=== PATIENT | female | born 1950 | race Caucasian/White ===

== ENCOUNTER → 2016-10-31 | Outpatient (CLI) | payer MEDICARE, BC | LOC: RAD 10:21 | PROVIDERS: ATTEND Family Medicine | DX: Z12.31 Encounter for screening mammogram for malignant neoplasm of breast (principal) ==

== ENCOUNTER 2017-01-26 10:12 | Emergency (ER) | payer MEDICARE, BC ==
[~2017-01-26] VITALS: Ht 160 cm; Wt 83300.0 kg
[~2017-01-26 10:12] MED LIST: ALPR.25T PO; ASCO500T5 PO; ASPI-586 PO; ATOR20TA PO; CETI10TA23 PO; CYCL10TA45 PO; ESTR1TAB24 PO; FENO160T PO; FISH OIL500 M1 PO; FOLI1TAB6 PO; HCT25T PO; LEVO75TA4 PO; LOSA100T8 PO; MELO-249 PO; METO-270 PO; NITR0.4T7 SL; OMEP20CA12 PO; OXYB5TAB9 PO; TRAZ150T72 PO
--- NOTE | 2017-01-26 10:15 | NUR ---
PATIENT INITIALLY SEEN IN TRIAGE ROOM AND UPON REPORT OF CHEST DISCOMFORT TAKEN TO ER-5 WHERE VITAL SIGNS, BRIEF HISTORY OF CURRENT COMPLAINT, ALLERGIES, ETC OBTAINED. INFORMATION REPORTED (WRITTEN AND ORALLY) TO Rose QUICK RN WHO HAS ASSUMED CARE OF PT.
--- OUTSIDE RECORDS SUMMARY | 2017-01-26 10:16 | XMS REPORT | Summary of Care ---
Author Author Marlen Storm, ADRIAN, ,, Simeon Blake Unknown Address Unknown Phone Unavailable Care Team Providers Care Gerontology Aide Name Role Phone Marlen Storm, ADRIAN, ,, M Unavailable Unavailable Lian Storm, Yesy Unavailable Unavailable Hue Storm, Maria A Unavailable Unavailable Servando Rand Unavailable Unavailable Unavailable Unavailable Functional Status Name Dates Details Functional status health issues are not documented Status: Name Dates Details Cognitive status health issues are not documented Status: Problems Name Dates Details Obesity (278.00, E66.9) Status: Active Pre-operative cardiovascular examination (V72.81, Z01.810) Status: Active Hemangioma of skin (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.01, D18.01) Status: Active Urinary incontinence (788.30, R32) Status: Active Urinary urgency (788.63, R39.15) Status: Active 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 Refills: 0 Start -Sep-2008 Active Estradiol 1 MG Oral Tablet TAKE 1 TABLET DAILY. Refills: 0 Start -Sep-2008 Active Levothyroxine Sodium 75 MCG Oral Tablet TAKE 1 TABLET DAILY. Refills: 0 Start -Sep-2008 Active HydroCHLOROthiazide 25 MG Oral Tablet TAKE 1/2 TABLET DAILY. Refills: 0 Start 25-Sep-2008 Active ALPRAZolam 0.5 MG Oral Tablet TAKE 1/2 TABLET DAILY Refills: 0 Start 25-Sep-2008 Active Oxybutynin Chloride 5 MG Oral Tablet TAKE 1 TABLET 3 TIMES DAILY. Quantity: 270 Refills: 3 Marlen Storm, ADRIAN, , , Simeon Marti Start 25-Sep-2008 Active Cetirizine HCl - 10 MG Oral Tablet TAKE 1 TABLET DAILY. Refills: 0 Start 25-Sep-2008 Active Aspirin 81 MG TABS take 1 tab twice daily Quantity: 30 Refills: 0 Start 25-Sep-2008 Active Vitamin B-1 250 MG Oral Tablet TAKE 1 TABLET DAILY. Refills: 0 Start 25-Sep-2008 Active Vitamin B-6 100 MG Oral Tablet TAKE 1 TABLET DAILY DIRECTED. Refills: 0 Start 25-Sep-2008 Active Albuterol Sulfate (2.5 MG/3ML) 0.083% Inhalation Nebulization Solution USE 1 UNIT DOSE EVERY 4-6 HOURS NEEDED FOR WHEEZING . Quantity: 180 Refills: 0 Start 05-Nov-2008 Active Meloxicam 15 MG Oral Tablet TAKE 1 TABLET DAILY. Quantity: 30 Refills: 0 Cecil Beal M.D. Start 04-Nov-2009 Active 30 EA Disp Pack (12 Disp Packs) Metoprolol Tartrate 50 MG Oral Tablet TAKE 1 TABLET TWICE DAILY. Quantity: 60 Refills: 6 Cecil Beal M.D. Start 09-Nov-2010 Active Clobetasol Propionate 0.05 % External Cream APPLY SPARINGLY TO AFFECTED AREA ON SHOULDER TWICE DAILY Quantity: 60 Refills: 1 Phillip Swann M.D. Start 23-Aug-2012 Active Atorvastatin Calcium 40 MG Oral Tablet TAKE ONE TABLET BY MOUTH DAILY AT BEDTIME. Refills: 0 Cecil Beal M.D. Start 30-Jan-2013 Active Vitamin C Oral Tablet Chewable Take 1 tablet daily Quantity: 90 Refills: 0 Marlen Storm, ADRIAN, , , Simeon Marti Start 31-Dec-2013 Active Desloratadine 5 MG Oral Tablet TAKE 1 TABLET DAILY. Refills: 0 Cecil Beal M.D. Start Active FLUoxetine HCl - 10 MG Oral Tablet TAKE 1 TABLET DAILY DIRECTED. Refills: 0 Start Active Valsartan 160 MG Oral Tablet TAKE 1 TABLET DAILY. Refills: 0 Start Active Methenamine Hippurate 1 GM Oral Tablet TAKE 1 TABLET TWICE DAILY. Quantity: 180 Refills: 3 Marlen Storm, ADRIAN, , , Simeon Marti Start Active Allergies and Adverse Reactions Name Dates Details Theophyllines (Allergy) Status: Active Past Medical History Name Dates Details Personal history of skin cancer (V10.83, Z85.828) Status: Resolved Procedures Procedure Dates Details History of Hysterectomy History of Cholecystectomy History of Appendectomy History of Tonsillectomy History of Foot Surgery History of Mid-Urethral Sling Operation Completed: 07-Aug-2013 URINE CULTURE [id number] Ordered: 03-Oct-2016 Immunization Name Dates Details Immunizations not documented Family History Name Dates Details Family history of Skin Cancer (V16.8) Comments: Family History Status: Active Family history of Leukemia (V16.6) Comments: Family History Status: Active Name Dates Details Family history of Acute Myocardial Infarction (V17.3) Status: Active Family history of Coronary Artery Disease (V17.49) Status: Active Name Dates Details Family history of Stroke Syndrome (V17.1) Status: Active Family history of Congestive Heart Failure Status: Active Name Dates Details Family history of Hypertension (V17.49) Status: Active Family history of Hypertension (V17.49) Status: Active Name Dates Details Family history of Angiography Cerebral Aneurysm Status: Active Social History Name Dates Details - Status: Name Dates Details Former smoker Vital Signs Date Test Result Details No Known Vitals to report Results Date Description Value Details Results not documented Plan of Care Name Dates Details Planned Observations Planned Goals not documented Planned Encounters Appointment; Provider: Simeon Gee M.D.|ADRIAN Mcbride|ADRIAN Storm, On 09-Oct-2017 13:15 Appointment; Provider: Cecil Beal M.D. On 03-May-2017 13:00 Appointment; Provider: Phillip Swann M.D. On 08:15 Interventions Provided Labs/Procedures/ImagingURINE CULTURE [id number]; To be Done: 03 Oct 2016 Instructions Name Dates Details Instructions not documented Encounters Appointment; Cecil Beal M.D. Encounter Diagnosis: Problem not documented On 26-Apr-2016 10:30 Appointment; Simeon Gee M.D.|Angela|Emeterio,ADRIAN|ADRIAN Storm, Encounter Diagnosis: Problem not documented On 12:45 Appointment; Phillip Swann M.D. Encounter Diagnosis: Problem not documented On 11:15 Appointment; Simeon Gee M.D.|M[facility]|ADRIAN Storm|ADRIAN Storm, Encounter Diagnosis: Problem not documented On 31-Aug-2015 14:15 Appointment; Cecil Beal M.D. Encounter Diagnosis: Problem not documented On 15:30 Appointment; Simeon Gee M.D.|[facility].|ADRIAN Storm|Emeterio,ADRIAN, Encounter Diagnosis: Problem not documented On 14:45 Appointment; Phillip Swann M.D. Encounter Diagnosis: Problem not documented On 05-Feb-2015 08:00"
--- OUTSIDE RECORDS SUMMARY | 2017-01-26 10:17 | XMS REPORT ---
Author Cecil Chester Organization Unknown Address [address], [place] [id number] Phone Care Team Providers Care Adding Machine Mechanic Name Role Phone Katelyn COLLIER PP Unavailable Unavailable Reason for Referral No Reason for Referral was given. Chief Complaint HCPA Text Box CC: Yearly. History of Present Illness No HPI available. Problems Normal Routine History And Physical Adult (V70.0); (Active) Visit For : Preoperative Cardiovascular Exam (V72.81); (Active) Coronary Artery Disease (414.00); (Active) Hyperlipidemia (272.4); (Active) Hypertension (401.9); (Active) Obesity (278.00); (Active) Medication Omeprazole 40 MG Oral Capsule Delayed Release; TAKE 1 CAPSULE DAILY.; Start Date : 09/25/2008 (Active)Levothyroxine Sodium 75 MCG Oral Tablet; TAKE 1 TABLET DAILY.; Start Date: 09/25/2008 (Active)Hydrochlorothiazide 25 MG Oral Tablet; TAKE 1/2 TABLET DAILY.; Start Date: 09/25/2008 (Active)Estradiol 1 MG Oral Tablet; TAKE 1 TABLET DAILY.; Start Date: 09/25/2008 (Active)Oxybutynin Chloride 5 MG Oral Tablet; Take one tablet daily; Start Date: 09/25/2008 (Active )Cetirizine HCl 10 MG Oral Tablet; TAKE 1 TABLET DAILY.; Start Date: 09/25/2008 (Active)ALPRAZolam 0.5 MG Oral Tablet; TAKE 1/2 TABLET DAILY; Start Date: 2008 (Active)TraZODone HCl 150 MG Oral Tablet; take 1/2 tablet at bedtime; Start Date: 09/25/2008 (Active)Aspirin 81 MG Oral Tablet; take 1 tab twice daily ; Start Date: 09/25/2008 (Active)Fish Oil 1000 MG Oral Capsule; take 2 capsules daily; Start Date: 09/25/2008 (Active)Vitamin B-1 250 MG Oral Tablet; TAKE 1 TABLET DAILY.; Start Date: 09/25/2008 (Active)Vitamin B-6 100 MG Oral Tablet; TAKE 1 TABLET DAILY DIRECTED.; Start Date: 09/25/2008 (Active)Multivitamins Oral Capsule; TAKE 1 CAPSULE DAILY.; Start Date: 09/25/2008 (Active)Vitamin C 500 MG Oral Tablet; TAKE 1 TABLET DAILY.; Start Date: 09/25/2008 (Active) Albuterol Sulfate (2.5 MG/3ML) 0.083% Inhalation Nebulization Solution; USE 1 UNIT DOSE EVERY 4-6 HOURS NEEDED FOR WHEEZING .; Start Date: 11/05/2008 ( Active)Meloxicam 15 MG Oral Tablet; TAKE 1 TABLET DAILY.; Start Date: 2009 (Active)Metoprolol Tartrate 25 MG Oral Tablet; TAKE 1 TABLET BY MOUTH TWICE DAILY; Start Date: 11/09/2010 (Active)Fenofibrate 160 MG Oral Tablet; TAKE 1 TABLET DAILY.; Start Date: 11/09/2010 (Active)Calcium 600 MG Oral Tablet ; 1 tablet daily; Start Date: 11/22/2011 (Active)Atorvastatin Calcium 40 MG Oral Tablet; TAKE ONE TABLET BY MOUTH DAILY AT BEDTIME.; Start Date: 01/30/2013 (Active)Clobetasol Propionate 0.05 % External Cream; APPLY SPARINGLY TO AFFECTED AREA ON SHOULDER TWICE DAILY; Start Date: 08/23/2012; End Date: 1899 (Active)Losartan Potassium 100 MG Oral Tablet; TAKE 1 TABLET BY MOUTH ONCE A DAY; Start Date: 01/30/2013 (Active) Allergies and Adverse Reactions Theophyllines (Active) Past Medical History No Significant Medical History Family History Maternal history of Acute Myocardial Infarction (V17.3); (Active) Maternal history of Coronary Artery Disease (V17.49); (Active) Paternal history of Stroke Syndrome (V17.1); (Active) Paternal history of Congestive Heart Failure (Active) Sororal history of Hypertension (V17.49); (Active) Sororal history of Hypertension ( V17.49); (Active) Fraternal history of Angiography Cerebral Aneurysm (Active) Social History Uses Safety Equipment - Seatbelts (Active) Beer Consumption (___ Bottles Per Day) (Active) Former Smoker Comments: Quit in 1969 (V15.82) ; (Active) Working Part-time (Active) Marital History - Currently (Active) Vital Signs Date Description Test Result 30 Jan 2013 01:39 PM recorded by: Sharee Duval Weight 199 lb Body Mass Index Calculated 35.26 Body Surface Area Calculated 1.93 BP Systolic 124 mm[Hg] BP Diastolic 84 mm[Hg] Heart Rate 68 /min Advance Directives No Advance Directives available. Encounters Appointment 01/30/2013 JUANITA , Provider: Hue Fisher, Status: Christiano , Time: 8:15 AM 08/15/2013 ZAIDT , Provider: Lian Jacob, Status: Christiano , Time: 2:00 PM 02/04/2014
[2017-01-26] MEDS ORDERED: morphine INJ 4 MG/ML 1 ML SYRINGE IV PRN (10:30)
[2017-01-26] MEDS ORDERED: NITROGLYCERIN SUBLINGUAL 0.4 MG (NITROQUICK) TABLET SL PRN (10:30)
[2017-01-26] MEDS ORDERED: SODIUM CHLORIDE FLUSH 10 ML SYR IV PRN (10:30)
[2017-01-26] MEDS ORDERED: ASPIRIN 81 MG CHEW (LOW-DOSE) PO ONE (10:30)
[2017-01-26] MEDS ORDERED: SODIUM CHLORIDE FLUSH 3 ML SYR IV PRN (10:30)
[2017-01-26] MEDS ORDERED: ONDANSETRON 2 MG/ML (Z0FRAN) 2 ML VIAL IV ONE (10:30)
[2017-01-26] MEDS ORDERED: SODIUM CHLORIDE 250 ML IV PRN (10:30)
[2017-01-26 10:47] LABS: BASOPHILS % (AUTO) 0 % (0-2); EOSINOPHILS # (AUTO) 0.4 10^3uL; EOSINOPHILS % (AUTO) 6 % (0-4); LYMPHOCYTES # (AUTO) 1.9 X10^3; MEAN CORPUSCULAR HEMOGLOBIN 29.8 PG (26.0-34.0); MEAN CORPUSCULAR HGB CONC 34.1 g/dL (31.0-37.0); MEAN CORPUSCULAR VOLUME 87 FL (80-100); MEAN PLATELET VOLUME 10.1 FL (6.0-9.5); MONOCYTES # (AUTO) 0.6 X10^3; MONOCYTES % (AUTO) 8 % (3-11); NEUTROPHILS # (AUTO) 4.5 X10^3; NEUTROPHILS % (AUTO) 60 % (51-67); PLATELET COUNT 230 10^3uL (150-450); WHITE BLOOD COUNT 7.42 10^3uL (4.0-11.0)
[2017-01-26 10:57] LABS: ALBUMIN 4.4 g/dL (3.4-5.0); ALKALINE PHOSPHATASE 75 U/L (38-126); ANION GAP 15.7 MEQ/L (3-15); BUN/CREATININE RATIO 25 (10-20); CALCULATED IONIZED CALCIUM 4.1 mg/dL (3.8-4.6); CREATINE KINASE 54 U/L (30-135); MAGNESIUM* 1.8 mg/dL (1.6-2.3); TOTAL PROTEIN 7.7 g/dL (6.4-8.5)
--- NOTE | 2017-01-26 11:32 | Diagnostic Imaging Report ---
INDICATION: Chest pain. PA and lateral chest obtained at 10:43 a.m. FINDINGS: Heart and mediastinal silhouette are normal in appearance. The lungs are clear. There is no pneumothorax or pleural fluid. IMPRESSION: Negative chest. Dictated by: Dictated on workstation # [id number]
[2017-01-26] MEDS ORDERED: NITR0.4T7 SL (11:49)
[2017-01-26 12:18] VITALS: BP 126/64
[2017-01-26] MEDS ORDERED: MTP50T PO (12:26)
[2017-01-26] MEDS ORDERED: METH1TAB21 PO (12:30)
[2017-01-26] MEDS ORDERED: FLUO20TA28 PO (12:30)
[2017-01-26] MEDS ORDERED: VALS320T11 PO (12:30)
== END 2017-01-26 12:20 | disposition home or self-care (01) ==
LOC: ED 10:14
DX: I20.9 Angina pectoris, unspecified (principal); I11.9 Hypertensive heart disease without heart failure; Z87.891 Personal history of nicotine dependence; Z95.5 Presence of coronary angioplasty implant and graft
CPT/HCPCS: 36415; 71010; 80053; 82550; 82553; 83735; 83880; 84484; 85025; 85379; 85610; 85730; 93005; 96374; 99285; A9270; J2405; J7050; 93010; 99284